=== PATIENT | male | born 1950 | race Caucasian/White ===

== ENCOUNTER 2017-10-16 06:39 | Day surgery (SDC) | payer MEDICARE, BC ==
[~2017-10-16 06:39] MED LIST: Lactated Ringers 1,000 ML IV SCH
[2017-10-16] MEDS ORDERED: Propofol 200 MG/20 ML SDV ONE (07:48)
[2017-10-16] MEDS ORDERED: fentaNYL 100 MCG/2 ML SDV ONE (07:48)
--- NOTE | 2017-10-16 14:34 | OR ---
PREOPERATIVE DIAGNOSIS: Family history of colon cancer-father and brother, personal history of polyps. POSTOPERATIVE DIAGNOSIS: Mild sigmoid diverticulosis, otherwise normal exam. PROCEDURE PROPOSED: Total flexible colonoscopy. PROCEDURE DONE: Total flexible colonoscopy. INDICATION: This is a 67-year-old gentleman, who comes in for colonic surveillance due to family history of colon cancer. He has been having some left lateral torso pain and he is not aware of having any prior diverticulosis on his previous exams. TECHNIQUE: The patient was brought to the endoscopy suite, placed in left lateral decubitus position. He was sedated per [employer] with propofol. A flexible video colonoscope was then passed transanally and under visualization advanced to the cecum. Examination revealed normal ascending, transverse, descending colon. Sigmoid colon revealed some mild diverticulosis and the rectum was normal. There was no evidence of any polyps or colitis or other abnormalities. The scope was then withdrawn. The patient tolerated procedure well. FINAL IMPRESSION: 1. Sigmoid diverticulosis, otherwise normal exam. 2. Family history of colon cancer. 3. Personal history of polyps. PLAN: He should continue with colonic surveillance every 5 years hereafter. SCM: 10/16/2017 08:57:56 MODL: 10/16/2017 09:33:31 /[id number]
== END 2017-10-16 10:10 | disposition home or self-care (01) ==
LOC: VM.SDS 06:39
PROVIDERS: ATTEND Surgery
DX: R10.9 Unspecified abdominal pain (principal); K57.30 Diverticulosis of large intestine without perforation or abscess without bleeding; E78.5 Hyperlipidemia, unspecified; I10 Essential (primary) hypertension; N52.9 Male erectile dysfunction, unspecified; N40.1 Benign prostatic hyperplasia with lower urinary tract symptoms; N13.8 Other obstructive and reflux uropathy; E11.9 Type 2 diabetes mellitus without complications; G47.33 Obstructive sleep apnea (adult) (pediatric); Z79.2 Long term (current) use of antibiotics; Z79.84 Long term (current) use of oral hypoglycemic drugs; Z79.899 Other long term (current) drug therapy; Z98.890 Other specified postprocedural states; Z86.010 Personal history of colon polyps; Z87.891 Personal history of nicotine dependence; Z80.0 Family history of malignant neoplasm of digestive organs
CPT/HCPCS: 82962; G0105; J2704; J3010; J7120

== ENCOUNTER 2021-04-22 09:06 | Emergency (ER) | payer BC, MEDICARE | END 2021-04-22 09:50 | disposition home or self-care (01) | LOC: VM.ED 09:06 | DX: J32.9 Chronic sinusitis, unspecified (principal); I10 Essential (primary) hypertension; E11.9 Type 2 diabetes mellitus without complications; Z79.899 Other long term (current) drug therapy; Z79.84 Long term (current) use of oral hypoglycemic drugs | CPT/HCPCS: 99283 ==

== ENCOUNTER 2022-11-29 06:57 | Day surgery (SDC) | payer MEDICARE ==
[2022-11-29] MEDS ORDERED: Lactated Ringers 1,000 ML IV SCH (07:00)
[2022-11-29] MEDS ORDERED: fentaNYL 100 MCG/2 ML SDV ONE (08:17)
[2022-11-29] MEDS ORDERED: Propofol 200 MG/20 ML SDV ONE (08:17)
[2022-11-29] MEDS ORDERED: Midazolam 1 MG/ML 2 ML SDV ONE (08:17)
== END 2022-11-29 09:50 | disposition home or self-care (01) ==
LOC: VM.SDS 06:57
PROVIDERS: ATTEND Family Medicine
DX: Z12.11 Encounter for screening for malignant neoplasm of colon (principal); D12.0 Benign neoplasm of cecum; D12.6 Benign neoplasm of colon, unspecified; K57.30 Diverticulosis of large intestine without perforation or abscess without bleeding; N40.1 Benign prostatic hyperplasia with lower urinary tract symptoms; N13.8 Other obstructive and reflux uropathy; G47.00 Insomnia, unspecified; E11.9 Type 2 diabetes mellitus without complications; D50.9 Iron deficiency anemia, unspecified; I12.9 Hypertensive chronic kidney disease with stage 1 through stage 4 chronic kidney disease, or unspecified chronic kidney disease; N18.30 Chronic kidney disease, stage 3 unspecified; K21.9 Gastro-esophageal reflux disease without esophagitis; E78.5 Hyperlipidemia, unspecified; G47.33 Obstructive sleep apnea (adult) (pediatric); E66.9 Obesity, unspecified; Z98.890 Other specified postprocedural states; Z79.899 Other long term (current) drug therapy; Z79.84 Long term (current) use of oral hypoglycemic drugs; Z79.82 Long term (current) use of aspirin; Z87.891 Personal history of nicotine dependence
CPT/HCPCS: 00811; 45385; 82947; 88305; J2250; J2704; J3010; J7120